=== PATIENT | male | born 1980 | race Caucasian/White ===

== ENCOUNTER 2016-12-22 14:37 | Emergency (ER) | payer OTHER ==
[~2016-12-22] VITALS: Ht 177.8 cm; Wt 62.0 kg
[2016-12-22 15:00] VITALS: BP 125/72; PULSE 100; RESP 16; TEMP 98.4; O2SAT 98
[2016-12-22] MEDS ORDERED: SODIUM CHLORIDE 0.9% FLUSH 10 ML FLUSH IVF PRN (15:30)
[2016-12-22] MEDS ORDERED: ACETAMINOPHEN/HYDROcodone 325 MG/5 MG TAB PO ONE (15:30)
[2016-12-22] MEDS ORDERED: TETANUS/DIPHTHERIA TOXOID ADULT 0.5 ML VIAL IM ONE (15:30)
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
== END 2016-12-22 20:10 | disposition home or self-care (01) ==
LOC: NEPE 14:37
DX: S50.812A Abrasion of left forearm, initial encounter (principal); S00.01XA Abrasion of scalp, initial encounter; F17.200 Nicotine dependence, unspecified, uncomplicated; V28.4XXA Motorcycle driver injured in noncollision transport accident in traffic accident, initial encounter; Z23 Encounter for immunization
CPT/HCPCS: 70450; 90471; 90714; 99284; L0150